=== PATIENT | male | born 1950 | race Caucasian/White ===

== ENCOUNTER 2016-06-28 10:06 | Emergency (ER) | payer MEDICARE ==
[2016-06-28 11:27] VITALS: BP 150/79
--- NOTE | 2016-06-28 12:45 | UC ---
Throat Pain/Nasal Ivan HPI - HPI Summary HPI Summary: Nasal congestion, ST, cough, and mucus production starting 3 days ago. Denies fever, trouble breathing, or specific pain. Main concern is that he has had cold symptoms with nasal congestion, cough, and ST almost once per month since November. Each time it has resolved in a couple weeks (except for some coughing that lasted 4 weeks at least once), has not taken any antibiotics, steroids, or inhalers, no hospitalization, no hx asthma or COPD. - History of Current Complaint Chief Complaint: UCRespiratory Stated Complaint: SORE THROAT,URI,CONGESTION Time Seen by Provider: 06/28/16 12:19 Hx Obtained From: Patient Onset/Duration: Gradual Onset, Lasting Days Severity: Mild Cough: Productive Associated Signs & Symptoms: Positive: Nasal Discharge. Negative: Wheezing, Hoarseness, Fever, Vomiting - Allergies/Home Medications Allergies/Adverse Reactions: Allergies Allergy/AdvReac Type Severity Reaction Status Date / Time No Known Allergies Allergy Verified 06/28/16 11:27 Home Medications: Home Medications Atorvastatin* [Lipitor 10 MG*] 06/28/16 [History] PMH/Surg Hx/FS Hx/Imm Hx Cardiovascular History Of: Reports: Cardiac Disorders - Surgical History Surgical History: Yes Surgery Procedure, Year, and Place: KIDNEY "BOULDER" REMOVED, KIDNEY STONE - Family History Known Family History: Positive: Hypertension - Social History Occupation: Employed Full-time Alcohol Use: None Substance Use Type: None Smoking Status (MU): Never Smoked Tobacco Review of Systems Constitutional: Negative Skin: Negative Eyes: Negative ENT: Sore Throat, Nasal Discharge Respiratory: Cough Cardiovascular: Negative Gastrointestinal: Negative Genitourinary: Negative Motor: Negative Neurovascular: Negative Musculoskeletal: Negative Neurological: Negative Psychological: Negative All Other Systems Reviewed And Are Negative: Yes Physical Exam Triage Information Reviewed: Yes Appearance: Well-Appearing, No Pain Distress, Well-Nourished Vital Signs: Initial Vital Signs Temp 97.9 F 06/28/16 11:20 Pulse 65 06/28/16 11:20 Resp 16 06/28/16 11:20 BP 150/79 06/28/16 11:20 Pulse Ox 100 06/28/16 11:20 Vital Signs Reviewed: Yes Eye Exam: Normal Eyes: Positive: Conjunctiva Clear ENT: Positive: Pharynx normal, Nasal congestion, TMs normal. Negative: Tonsillar swelling, Tonsillar exudate Dental Exam: Normal Dental: Positive: Percussion Tenderness @, Gross Decay/Caries @, Dental Fracture @ Neck exam: Normal Neck: Positive: Supple, Nontender, No Lymphadenopathy Respiratory Exam: Other - no cough noted Respiratory: Positive: Chest non-tender, Lungs clear, Normal breath sounds, No respiratory distress, No accessory muscle use Cardiovascular Exam: Normal Cardiovascular: Positive: RRR, No Murmur Musculoskeletal Exam: Normal Neurological Exam: Normal Neurological: Positive: Alert Psychological Exam: Normal Skin Exam: Normal Throat Pain/Nasal Course/Dx - Differential Dx/Diagnosis Provider Diagnoses: URI, likely viral Discharge - Discharge Plan Condition: Stable Disposition: HOME Patient Education Materials: Acute Bronchitis (ED) Referrals: Bobo Howard MD [Primary Care Provider] - Additional Instructions: As we discussed, I do not see any obvious reasons for your frequent minor illness this winter. It is a very good sign that each episode has cleared up on its own without bacterial complications like pneumonia. While I agree that having 6 colds in 7 months is a bit higher than average, at this point I would consider it a "blip" in the data and expect you to have fewer episodes next year. If you continue to have these illnesses every 4-6 weeks, please see your primary care provider for possible immune testing and pulmonary function testing. Call or return if you develop increasing fever, shortness of breath, chest pain , bloody sputum, or otherwise worsen. If you have not improved at all after several days, contact your primary care physician or return here.
== END 2016-06-28 12:46 | disposition home or self-care (01) ==
LOC: UCEAST 10:06
DX: J06.9 Acute upper respiratory infection, unspecified (principal)
CPT/HCPCS: 99211; G0463

== ENCOUNTER 2019-04-18 14:34 | Emergency (ER) | payer MEDICARE, BC ==
--- OUTSIDE RECORDS SUMMARY | 2019-04-18 14:40 | XMS REPORT | Summary of Care ---
:1950 Author Organization [facility] Address [address] [place] [address] Care Team Providers Name Role Phone Stepan Linn Primary Care Provider Maciel Jeffery MD Unavailable Adilson Funez MD Unavailable Chapo Carlin OD Unavailable Reason for Visit Reason Comments Ear Problem c/o bilateral ear fullness x1 week with sinus drainage/pressure x1 month. States left sided ear worse. Denies fever. Encounter Details Date Type Department Care Team Description 03/04/2019 Office Visit [facility] Stepan Linn MD Dysfunction of both eustachian tubes (Primary Dx); Practice [address] [facility] Acute recurrent sinusitis, unspecified location; [address] [place] [address] Mixed hyperlipidemia [place], [place] [id number] Allergies No Known Allergiesdocumented as of this encounter (statuses as of 03/04/2019) Medications Medication Sig Dispensed Refills Start Date End Date Status finasteride (PROSCAR) 5 Take 5 mg by 0 Active MG Oral Tab mouth DAILY. atorvastatin (LIPITOR) TAKE ONE TABLET 30 Tab 2 10/10/2018 Active 20 MG Oral BY MOUTH ONCE TabIndications: Mixed DAILY hyperlipidemia amoxicillin (AMOXIL, Take 1 Tab by 20 Tab 0 03/04/2019 Active POLYMOX, TRIMOX) 875 MG mouth TWICE Oral Tab DAILY. fluticasone (FLONASE) 50 [place] 2 Sprays 1 Bottle 0 03/04/2019 Active MCG/ACT Nasal Suspension in nose DAILY. documented as of this encounter (statuses as of 03/04/2019) Active Problems Problem Noted Date Hyperlipidemia BPH (benign prostatic hyperplasia) documented as of this encounter (statuses as of 03/04/2019) Immunizations Name Administration Dates Next Due Influenza Vaccine 65 Yrs + 03/04/2019 (Deferred: Other), 12/02/2018 Influenza Vaccine High Dose 03/04/2019 (Deferred: Other), 11/22/2017 PNEUMOCOCCAL POLYSACCHARIDE VACCINE 10/04/2015 Pneumococcal Conjugate(13 Valent) 10/18/2017 TDAP Vaccine 10/19/2011 documented as of this encounter Social History Tobacco Use Types Packs/Day Years Used Date Former Smoker Cigarettes 1.5 5 1969 - 09/22/1974 Smokeless Tobacco: Never Used Alcohol Use Drinks/Week oz/Week Comments No rarely Sex Assigned at Date Recorded Not on file Job Start Date Occupation Industry Not on file Not on file Not on file Travel History Travel Start Travel End No recent travel history available. documented as of this encounter Last Filed Vital Signs Vital Sign Reading Time Taken Comments Blood Pressure 136/78 03/04/2019 10:06 AM EST Pulse 70 03/04/2019 10:06 AM EST Temperature 36.3 03/04/2019 10:06 AM EST C (97.3 F) Respiratory Rate 18 03/04/2019 10:06 AM EST Oxygen Saturation - - Inhaled Oxygen Concentration - - Weight 96.6 kg (213 lb) 03/04/2019 10:06 AM EST Height 185.4 cm (6' 1") 03/04/2019 10:06 AM EST Body Mass Index 28.1 03/04/2019 10:06 AM EST documented in this encounter Progress Notes Stepan Linn MD - 03/04/2019 10:00 AM EST PATIENT: Kishan Talley : 1950 DATE OF SERVICE: 03/04/2019 CHIEF COMPLAINT: Chief Complaint Patient presents with Ear Problem c/o bilateral ear fullness x1 week with sinus drainage/pressure x1 month. States left sided ear worse. Denies fever. Subjective HISTORY OF PRESENT ILLNESS: Kishan Talley is a 68-y.o. male. This week the ears plugged but before that had sinus symptoms for last 2 weeks which is a recurring problem. But the ears not really have before Some ST but may have been due to singing . Denies a fever. Sudafed not seem to help much . Dizzy only if turn head fast . In for follow up of hyperlipidemia. no side effects to medicines including Denies CP, SOB, orneuro symptoms. Past Medical History: Diagnosis Date BPH (benign prostatic hyperplasia) Elevated PSA Hemorrhoid 2018 10 Years vs 5 Hyperlipidemia Kidney stone on left side 09/02/2011 L ureteral stone. Family History Problem Relation Age of Onset Heart Father heart failure Hypertension Mother No Known Problems Brother No Known Problems Brother No Known Problems Daughter Psychiatry Son Cancer Maternal Grandmother Current Outpatient Medications Medication Sig atorvastatin (LIPITOR) 20 MG Oral Tab TAKE ONE TABLET BY MOUTH ONCE DAILY finasteride (PROSCAR) 5 MG Oral Tab Take 5 mg by mouth DAILY. No current facility-administered medications for this visit. No Known Allergies Social History Socioeconomic History Marital status: Spouse name: Not on file Number of children: Not on file Years of education: Not on file Highest education level: Not on file Occupational History Not on file Social Needs Financial resource strain: Not on file Food insecurity Worry: Not on file Inability: Not on file Transportation needs Medical: Not on file Non-medical: Not on file Tobacco Use Smoking status: Former Smoker Packs/day: 1.50 Years: 5.00 Pack years: 7.50 Types: Cigarettes Start date: 1969 Last attempt to quit: 09/22/1974 Years since quittin.4 Smokeless tobacco: Never Used Substance and Sexual Activity Alcohol use: No Comment: rarely Drug use: No Sexual activity: Yes Partners: Female Lifestyle Physical activity Days per week: Not on file Minutes per session: Not on file Stress: Not on file Relationships Social connections Talks on phone: Not on file Gets together: Not on file Attends jehovah's witness service: Not on file Active member of club or organization: Not on file Attends meetings of clubs or organizations: Not on file Relationship status: Not on file Intimate partner violence Fear of current or ex partner: Not on file Emotionally abused: Not on file Physically abused: Not on file Forced sexual activity: Not on file Other Topics Concern Back Care Not Asked Bike Helmet Not Asked Blood Transfusions No Caffeine Concern Not Asked Exercise Yes Comment: biking/walking/golf Hobby Hazards Not Asked International Travel Not Asked Service Not Asked Occupational Exposure Not Asked Seat Belt Not Asked Self-Exams Not Asked Sleep Concern Not Asked Special Diet Not Asked Stress Concern Not Asked Weight Concern Not Asked Social History Narrative 2 children. 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 Physical Exam Vitals signs reviewed. HENT: Head: Comments: No sinus tenderness Ears: Comments: Ears - bilateral TM's and external ear canals normal, right external ear normal, left externalear normal Mouth/Throat: Pharynx: Oropharynx is clear. Cardiovascular: Rate and Rhythm: Normal rate and regular rhythm. Pulmonary: Effort: Pulmonary effort is normal. No respiratory distress. Breath sounds: Normal breath sounds. Lymphadenopathy: Cervical: No cervical adenopathy. ASSESSMENT / IMPRESSION: ICD-9-CM ICD-10-CM 1. Dysfunction of both eustachian tubes Will try flonase first and if not helping try the antibiotics for the referred pain and the cause of the ETD via sinusitis 381.81 H69.83 2. Acute recurrent sinusitis, unspecified location 461.9 J01.91 3. Mixed hyperlipidemia oatmeal today but tardy in getting labs so will do today 272.2 E78.2 LIPID PROFILE COMPREHENSIVE METABOLIC PANEL Plan Author: Stepan Linn MD 03/04/2019 10:17 documented in this encounter Plan of Treatment Name Type Priority Associated Diagnoses Date/Time LIPID PROFILE Lab Routine Mixed hyperlipidemia 03/04/2019 10:39 AM EST COMPREHENSIVE METABOLIC Lab Routine Mixed hyperlipidemia 03/04/2019 10:39 AM EST PANEL Health Maintenance Due Date Last Done Comments ZOSTER IMMUNIZATION SERIES 2000 (1 of 2) MEDICARE ANNUAL WELLNESS 10/18/2018 10/18/2017, 10/09/2016 VISIT DIABETES SCREENING 12/13/2018 12/13/2017, 12/13/2017, 07/05/2017, Additional history exists DEPRESSION SCREENING 03/04/2020 03/04/2019 FALL RISK ASSESSMENT 03/04/2020 03/04/2019, 03/04/2019 DTaP/Tdap/Td Vaccines (2 - 10/18/2021 10/19/2011 Tdap) LIPID DISORDER SCREENING 10/11/2023 10/10/2018, 07/05/2017, 02/06/2014, Additional history exists Colonoscopy 03/02/2028 03/02/2018, 03/04/2009 AAA SCREENING/SURVEILLANCE Completed 10/28/2016 PNEUMOCOCCAL 65+YRS Completed 10/18/2017, 10/04/2015 INFLUENZA VACCINE Completed 12/02/2018, 11/22/2017 HEPATITIS A IMMUNIZATION Aged Out No longer eligible SERIES based on patient's age to complete this topic HPV IMMUNIZATION SERIES Aged Out No longer eligible based on patient's age to complete this topic MENINGOCOCCAL VACCINE IMM Aged Out No longer eligible based on patient's age to complete this topic documented as of this encounter Results Not on filedocumented in this encounter Visit Diagnoses Diagnosis Acute recurrent sinusitis, unspecified location Mixed hyperlipidemia Dysfunction of both eustachian tubes Dysfunction of Eustachian tube documented in this encounter [address] (Home) [place], [place] [phone] [id number] (Work) documented as of this encounter
[2019-04-18] MEDS ORDERED: Tetan/Diph/Pertus SYR(Tdap)* 0.5 ML SYR(BOOSTRIX) use SYR contains LATEX IM ONE (16:23)
--- NOTE | 2019-04-18 16:50 | UC ---
Laceration HPI - HPI Summary HPI Summary: ACCIDENTALLY CLOSED HIS RIGHT INDEX FINGER IN THE CAR DOOR THIS AFTERNOON. HAS SOME SMALL SUPERFICIAL LACERATIONS. UNKNOWN DATE OF LAST TETANUS. - History Of Current Complaint Chief Complaint: UCUpperExtremity Stated Complaint: R HAND INJURY Time Seen by Provider: 04/18/19 16:18 Hx Obtained From: Patient Laceration Location: Finger - right index Mechanism Of Injury: Blunt Trauma Onset/Duration: Sudden Onset, Lasting Hours, Still Present Severity: Moderate Pain Intensity: 4 Pain Scale Used: 0-10 Numeric Aggravating Factors: Movement Related History: Dominant Hand Right - Allergies/Home Medications Allergies/Adverse Reactions: Allergies Allergy/AdvReac Type Severity Reaction Status Date / Time No Known Allergies Allergy Verified 04/18/19 15:49 Home Medications: Home Medications Atorvastatin* [Lipitor 10 MG*] 10 mg PO DAILY 06/28/16 [History Confirmed ] Finasteride TAB* [Proscar TAB*] 5 mg PO DAILY 04/18/19 [History Confirmed ] PMH/Surg Hx/FS Hx/Imm Hx Endocrine History: Dyslipidemia Cardiovascular History: Hypertension - Surgical History Surgical History: Yes Surgery Procedure, Year, and Place: KIDNEY "BOULDER" REMOVED, KIDNEY STONE - Family History Known Family History: Positive: Hypertension - Social History Alcohol Use: None Substance Use Type: None Smoking Status (MU): Never Smoked Tobacco Review of Systems All Other Systems Reviewed And Are Negative: Yes Constitutional: Positive: Negative Skin: Positive: Other - LACERATION RIGHT INDEX FINGER Respiratory: Positive: Negative Cardiovascular: Positive: Negative Gastrointestinal: Positive: Negative Musculoskeletal: Positive: Decreased ROM, Edema Physical Exam Triage Information Reviewed: Yes Appearance: Well-Appearing, No Pain Distress, Well-Nourished Vital Signs: Initial Vital Signs Temp 98.5 F 04/18/19 15:41 Pulse 59 04/18/19 15:41 Resp 14 04/18/19 15:41 BP 170/88 04/18/19 15:41 Pulse Ox 100 04/18/19 15:41 Vital Signs Reviewed: Yes Eyes: Positive: Conjunctiva Clear ENT: Positive: Hearing grossly normal Neck: Positive: Supple Respiratory: Positive: No respiratory distress, No accessory muscle use Cardiovascular: Positive: Pulses Normal Abdomen Description: Positive: Soft Musculoskeletal: Positive: No Edema, ROM Limited @ - RIGHT INDEX FINGER, Other: - TTP RIGHT INDEX FINGER DIP. Neurological: Positive: Alert Psychological: Positive: Age Appropriate Behavior Skin: Positive: Other - 1.2CM LINEAR LACERATION DORSAL RIGHT INDEX FINGER OVERLYING DIP. 0.7CM LINEAR LACERATION VOLAR RIGHT INDEX FINGER OVERLYING DIP Laceration Repair - Laceration Repair 1 Description: Linear Laceration Size After Repair: Length (cm) - 1.2CM, Width (mm) - 0MM, Depth (mm) - 2MM Modified For Repair: No Irrigation With Pressure Irrigation Device: Yes Closure Material: Skin Adhesive, SteriStrips 2 Description: Linear Laceration Size After Repair: Length (cm) - 0.7CM, Width (mm) - 0MM, Depth (mm) - 1MM Modified For Repair: No Irrigation With Pressure Irrigation Device: Yes Closure Material: Skin Adhesive, SteriStrips Diagnostics - Radiology RIGHT INDEX FINGER XRAYS Radiology Interpretation Completed By: Radiologist Summary of Radiographic Findings: 1. Fusiform soft tissue swelling most prominent at the level of the DIP joint. 2. Negative for fracture or articular malalignment. 3. Polyarticular mild osteoarthritis. Laceration Course/Dx - Course/Dx Course Of Treatment: SUPERFICIAL LACERATIONS REPAIRED TODAY WITH SKIN ADHESIVE AND STERI-STRIPS. X- RAY UNREMARKABLE FOR FRACTURE OR DISLOCATION. TDAP BOOSTED TODAY. - Diagnosis Provider Diagnosis: Laceration of right index finger Discharge ED - Sign-Out/Discharge Documenting (check all that apply): Patient Departure All imaging exams completed and their final reports reviewed: Yes - Discharge Plan Condition: Stable Disposition: HOME Patient Education Materials: Finger Laceration (ED) Referrals: Stepan Linn MD [Primary Care Provider] - If Needed Additional Instructions: KEEP DRESSING ON FOR THE FIRST 24 HOURS. SEEK FOLLOW-UP IF YOU DEVELOP SPREADING REDNESS OF THE SKIN, PURULENT DRAINAGE, FEVER, INCREASED PAIN OR ANY OTHER CONCERNING SYMPTOMS. THE STERISTRIPS WILL FALL OFF ON THEIR OWN IN THE NEXT 1-2 WEEKS. DO NOT PUT ANY OINTMENT ON TOP OF THEM. DO NOT SUBMERGE IN WATER FOR PROLONGED PERIOD OF TIME. OKAY FOR BRIEF SHOWER AFTER 24 HOURS AND THEN BE SURE TO ALLOW TO DRY COMPLETELY. TETANUS IMMUNIZATION GIVEN (TDAP): You have been given an immunization against tetanus. Please record this in your records. In general, a booster is needed only once every 10 years. The tetanus shot protects against tetanus or "lockjaw," which is a complication of certain wound infections (the tetanus shot cannot protect against the actual infection). The immunization site may become warm and red due to local reaction. If this occurs, apply warm compresses and take aspirin or ibuprofen to reduce inflammation and discomfort. Return for evaluation if the reaction becomes severe. - Billing Disposition and Condition Condition: STABLE Disposition: Home
[2019-04-18 17:47] VITALS: BP 163/83
== END 2019-04-18 17:47 | disposition home or self-care (01) ==
LOC: UCEAST 14:34
DX: S61.210A Laceration without foreign body of right index finger without damage to nail, initial encounter (principal); Z23 Encounter for immunization; I10 Essential (primary) hypertension; E78.5 Hyperlipidemia, unspecified; W23.0XXA Caught, crushed, jammed, or pinched between moving objects, initial encounter; Y92.9 Unspecified place or not applicable; Z79.899 Other long term (current) drug therapy
CPT/HCPCS: 12001; 73140; 90715; 99211; G0463